=== PATIENT | male | born 1955 | race African-American/Black ===

== ENCOUNTER 2018-07-22 05:13 | Observation (INO) | payer OTHER ==
[2018-07-22] MEDS ORDERED: Nitroglycerin TAB 0.4 MG* 0.4 MG TAB SL ONE ×2 (05:49→08:41)
--- NOTE | 2018-07-22 05:51 | ED ---
HPI Chest Pain - HPI Summary HPI Summary: This patient is a 62 year old M presenting to [facility] accompanied by two corrections officers with a chief complaint of constant central chest pain and SOB since 1 day ago. Patient notes that the pain worsened this morning. EMS administered [employer]. The patient rates the pain 7/10 in severity. Symptoms aggravated by position change. Symptoms alleviated by nothing. Hx HTN and DM. - History of Current Complaint Chief Complaint: EDChestPainROMI Time Seen by Provider: 07/22/18 05:34 Hx Obtained From: Patient Onset/Duration: Started Days Ago - 1 day ago, Atraumatic, Still Present Timing: Constant, Lasting Days Initial Severity: Mild Current Severity: Moderate Pain Intensity: 7 Pain Scale Used: 0-10 Numeric Chest Pain Location: Mid Sternal Aggravating Factor(s): Position Alleviating Factor(s): Nothing Associated Signs and Symptoms: Positive: Chest Pain, Shortness of Breath - Allergy/Home Medications Allergies/Adverse Reactions: Allergies Allergy/AdvReac Type Severity Reaction Status Date / Time No Known Allergies Allergy Verified 07/22/18 05:28 Home Medications: Home Medications Citalopram TAB* [CeleXA TAB*] 10 mg PO DAILY 07/22/18 [History Confirmed ] PMH/Surg Hx/FS Hx/Imm Hx Endocrine/Hematology History: Reports: Hx Diabetes Cardiovascular History: Reports: Hx Hypertension - Surgical History Surgery Procedure, Year, and Place: none reported Infectious Disease History: No Infectious Disease History: Denies: Traveled Outside the [place] in Last 30 Days - Family History Known Family History: Positive: Hypertension - Social History Alcohol Use: None Substance Use Type: Reports: None Smoking Status (MU): Light Every Day Tobacco Smoker Review of Systems Negative: Fever Negative: Epistaxis Positive: Chest Pain Positive: Shortness Of Breath Negative: Rash All Other Systems Reviewed And Are Negative: Yes Physical Exam - Summary Physical Exam Summary: GENERAL: Patient is a well-developed and nourished M who is lying comfortable in the stretcher. Patient is not in any acute respiratory distress. HEAD AND FACE: Normocephalic EYES: PERRLA, EOMI x 2. EARS: Hearing grossly intact. MOUTH: Oropharynx within normal limits. NECK: Supple, trachea is midline, no adenopathy, no JVD, no carotid bruit. CHEST: Symmetric, no tenderness at palpation LUNGS: Clear to auscultation bilaterally. No wheezing or crackles. CVS: Regular rate and rhythm, S1 and S2 present, no murmurs or gallops appreciated. ABDOMEN: Soft, non-tender. Bowel sounds are normal. No abdominal abnormal pulsations. EXTREMITIES: Full ROM in all major joints, no edema, no cyanosis or clubbing. NEURO: Alert and oriented x 3. No acute neurological deficits. Speech is normal and follows commands. SKIN: Dry and warm Triage Information Reviewed: Yes Vital Signs On Initial Exam: Initial Vitals Temp Pulse Resp BP Pulse Ox 98 F 78 19 141/96 96 07/22/18 05:20 07/22/18 05:20 07/22/18 05:20 07/22/18 05:20 07/22/18 05:20 Vital Signs Reviewed: Yes Diagnostics - Vital Signs Vital Signs Temp Pulse Resp BP Pulse Ox 07/22/18 05:20 98 F 78 19 141/96 96 - Laboratory Result Diagrams: 07/22/18 06:22 07/22/18 06:22 Lab Statement: Any lab studies that have been ordered have been reviewed, and results considered in the medical decision making process. - EKG 05:43 Cardiac Rate: NL - at 78 bpm EKG Rhythm: Sinus Rhythm Summary of EKG Findings: NSR at 78 bpm with LAVB. Chest Pain Course/Dx - Course Course Of Treatment: This patient is a 62 year old M presenting to [facility] accompanied by two corrections officers with a chief complaint of constant central chest pain and SOB since 1 day ago. Hx HTN and DM. An EKG reveals NSR at 78 bpm with LAVB. CXR reveals no acute process, pending official report. Patient will admitted to the hospitalist for ACS evaluation - Diagnoses Provider Diagnoses: Chest pain Discharge - Sign-Out/Discharge Documenting (check all that apply): Patient Departure, Sign-Out Patient - signed out to hospitalist Dr. Tan Signing out patient TO: Doron Rasheed All imaging exams completed and their final reports reviewed: Yes - Discharge Plan Condition: Stable Disposition: ADMITTED TO [facility] - Billing Disposition and Condition Condition: STABLE Disposition: Admitted to [facility] - Attestation Statements Document Initiated by Scribe: Yes Documenting Scribe: Babs Smith Provider For Whom Scribe is Documenting (Include Credential): Dhara Whyte MD Scribe Attestation: I, Bbas Smith, scribed for Dhara Whyte MD on 07/23/18 at 0346. Scribe Documentation Reviewed: Yes Provider Attestation: The documentation as recorded by the scribe, Babs Smith accurately reflects the service I personally performed and the decisions made by me, Nilesh Whyte MD
[2018-07-22 06:39] LABS: ABS Basophils 0.1 10^3/ul (0-0.2); ABS Eosinophils 0.1 10^3/ul (0-0.6); ABS Lymphocytes 2.4 10^3/ul (1.0-4.8); ABS Monocytes 0.9 10^3/ul (0-0.8); ABS Neutrophils 5.1 10^3/ul (1.5-7.7); ABS Nucleated RBC 0 10^3/ul; Eosinophil % 0.6 % (0-6); Hematocrit 39 % (42-52); Hemoglobin 13.1 g/dl (14.0-18.0); Lymphocyte % 28.6 % (25-47); Mean Corpuscular HGB Conc 34 g/dl (31-36); Mean Corpuscular Hemoglobin 30 pg (27-31); Mean Corpuscular Volume 88 fL (80-94); Mean Platelet Volume 8.5 fL (7.4-10.4); Nucleated Red Blood Cells % 0.1; Platelet Count 170 10^3/ul (150-450); Red Blood Count 4.38 10^6/ul (4.00-5.40); Red Cell Distribution Width 15 % (10.5-15); White Blood Count 8.5 10^3/ul (3.5-10.8)
[2018-07-22 06:47] LABS: INR 1.06 (0.77-1.02)
[2018-07-22 06:56] LABS: EGFR Non-African American 71.8 (>60)
[2018-07-22] MEDS ORDERED: Nitroglycerin TAB 0.4 MG* 0.4 MG TAB SL PRN (09:36)
[2018-07-22] MEDS: Citalopram TAB* 10 MG PO SCH (10:18)
[2018-07-22] MEDS: Enoxaparin(*) 40 MG/0.4 ML SYR SUBCUT SCH (10:18)
[2018-07-22] MEDS: Nitroglycerin 0.4 MG/HR PATCH* (10 MG) TRANSDERM SCH (10:18)
--- NOTE | 2018-07-22 10:38 | HP ---
HISTORY AND PHYSICAL: DATE OF ADMISSION: 07/22/18 PRIMARY CARE PHYSICIAN: None. HEALTHCARE PROXY: [place]. CODE STATUS: Full. SOURCE: History was obtained from interview with the patient and discussion with ED provider, Dr. Whyte. RELIABILITY: Fair. HISTORY OF PRESENT ILLNESS: This 62-year-old man with past medical history of self- reported type 2 diabetes, hypertension and hyperlipidemia is currently incarcerated, developed sharp chest pain across his chest yesterday morning, worse with deep inspiration that was worse this morning associated with shortness of breath without exertion, for which he presented to the emergency room. He notes that the pain was worse this morning, does have it without ambulation but it is worse with deep inspiration. He originally indicates subcostal region; however, later indicates a more substernal region, radiating to his left chest. He has had no nausea, vomiting, lightheadedness, loss of consciousness or palpitations. He did indicate he has had rhinorrhea recently but did not think much of it. No sore throat. No fevers, chills or night sweats. This is the first time he has experienced such pain. He is in no constipation or diarrhea indicating a GI origin; however, does have a history of GI bleed per his own report. He does note that the pain is worse with exertion but it is unclear if it is secondary to need to take deeper inspirations. When seen by this author, the patient had pain with deep inspiration. PAST MEDICAL HISTORY: Includes: 1. Self-reported type 2 diabetes. 2. Hypertension. 3. Hyperlipidemia. 4. Right jaw surgery status post trauma. MEDICATIONS: No medication list available; however, believes he takes Celexa 10 mg. No other medications. ALLERGIES: No known drug allergies. FAMILY HISTORY: No history of CAD. His mother had type 2 diabetes and hypertension. SOCIAL HISTORY: He smokes 3 to 4 cigarettes per day for 45 years. Reports heavy alcohol use in the past but could not indicate how much. Has smoked marijuana in the past. REVIEW OF SYSTEMS: As per HPI including chest pain with deep inspiration as well as rhinorrhea and shortness of breath. PHYSICAL EXAMINATION GENERAL: Sitting up in bed, interactive, pleasant, in no apparent distress. VITAL SIGNS: When seen by this author 138/96, heart rate of 72, respiratory rate of 16. T-max in the emergency room is 98 degrees Fahrenheit. HEENT: Oropharynx is clear. He has moist mucous membranes. Sclerae are anicteric. LUNGS: Clear to auscultation. He does have tenderness over his entire precordium, although he feels like it is on the "inside." HEART: He has regular rate and rhythm. No murmurs, rubs or gallops. ABDOMEN: Soft, nontender, nondistended with positive bowel sounds. EXTREMITIES: Warm and well perfused without clubbing, cyanosis or edema. He has less than 2 second capillary refill. NEURO: He is alert and oriented x3. His cranial nerves II through XII are intact. LABORATORY DATA: Labs are notable for a D-dimer of less than 200. Troponin I is 0.00. BNP of 10. Lactic acid of 1.1 and glucose 129. Otherwise, hemoglobin of 13.1, no prior for comparison. IMAGING: Chest x-ray reviewed by this author, formal interpretation is still pending. No active cardiopulmonary disease. EKG: No prior for comparison. Notable for normal sinus rhythm, ventricular rate 78, left axis, good R-wave progression. No Q waves, no ST elevations or depressions. ASSESSMENT AND PLAN: This is a 62-year-old man with past medical history of type 2 diabetes, hypertension, hyperlipidemia, self-reported GI bleed, presenting to the hospital with chest pain worse with deep inspiration. 1. Chest pain. The etiology does not seem consistent with unstable angina or non- ST elevated myocardial infarction at this point. Need to wait second troponin for differentiation between unstable angina and non-ST elevated myocardial infarction, although seems more associated with deep inspiration as a pulmonary source. We will admit to the hospital, place on telemetry, start aspirin, nitro p.r.n. Repeat EKG in the morning. Start low dose beta mary. We will not heparinize unless troponin increases or change in symptomatology. Plan on transthoracic echocardiogram tomorrow. If normal and the patient able to ambulate without pain, I believe he could be discharged safely. His MCKAYLA could be considered as 1 for chest pain twice, although seems to be atypical chest pain associated with deep inspiration and not necessarily exertion. Consideration for maintaining the patient until Tuesday for stress test could be considered based on additional testing today. 2. Type 2 diabetes. Check hemoglobin A1c added on to ER labs. 3. Hyperlipidemia, on no medications. Test in the morning tomorrow. 4. DVT prophylaxis is Lovenox. [id number]/[facility] #: [id number] [facility] CENTERJuan Ramon
--- NOTE | 2018-07-22 11:18 | RAD ---
INDICATION: Chest pain and shortness of breath COMPARISON: None. TECHNIQUE: Single AP portable view of the chest was obtained. FINDINGS: Image quality is compromised due to the relative inferiority of a portable chest x-ray. The heart and mediastinum exhibit normal size and contour. The lungs are grossly clear. There is no evidence of a large pleural effusion. Visualized bones are normal for the patient's age. IMPRESSION: No radiographic evidence for acute cardiopulmonary abnormality on this portable chest x-ray. R1NF
[2018-07-22] MEDS: Acetaminophen TAB* 325 MG PO PRN ×3 (12:41→22:40)
[2018-07-22] MEDS: Nicotine PATCH 14 MG/24 HR* PATCH TRANSDERM SCH (16:25)
[2018-07-22] MEDS ORDERED: Al Hydrox/Mg Hydrox/Simet LIQ* 30 ML UDC PO ONE (17:20)
[2018-07-22] MEDS: Nicotine Patch Removal NOTE PATCH OFF SCH (20:47)
[2018-07-23] MEDS: Nitro Patch/OINT Remove PATCH OFF SCH (06:02)
[2018-07-23] MEDS: Aspirin 81 mg CHEW TAB* 81 MG TAB.CHEW PO SCH (07:49)
[2018-07-23] MEDS: Citalopram TAB* 10 MG PO SCH (07:49)
[2018-07-23] MEDS: Nicotine PATCH 14 MG/24 HR* PATCH TRANSDERM SCH (07:51)
[2018-07-23] MEDS: Nitroglycerin 0.4 MG/HR PATCH* (10 MG) TRANSDERM SCH (07:54)
[2018-07-23] MEDS: Enoxaparin(*) 40 MG/0.4 ML SYR SUBCUT SCH (07:56)
--- NOTE | 2018-07-23 08:27 | PN ---
Subjective Date of Service: 07/23/18 Interval History: Pain persists at rest greatly increased with movement of neck body or inspiration Described as a pulsing or throbbing Not associated with food. No SOB, N/V, LH, palps Objective Active Medications: Acetaminophen (Tylenol Tab*) 650 mg PO Q4H PRN PRN Reason: FEVER/PAIN Last Admin: 07/22/18 22:40 Dose: 650 mg Aspirin (Aspirin 81 Mg Chew Tab*) 81 mg PO DAILY [facility] Last Admin: 07/23/18 07:49 Dose: 81 mg Citalopram Hydrobromide (Celexa Tab*) 10 mg PO DAILY [facility] Last Admin: 07/23/18 07:49 Dose: 10 mg Enoxaparin Sodium (Lovenox(*)) 40 mg SUBCUT Q24H [facility] Last Admin: 07/23/18 07:56 Dose: 40 mg Nicotine (Nicotine Patch 14 Mg/24 Hr*) 1 patch TRANSDERM DAILY [facility] Last Admin: 07/23/18 07:51 Dose: 1 patch Nitroglycerin (Nitroglycerin Tab 0.4 Mg*) 0.4 mg SL Q5M PRN PRN Reason: ANGINA Nitroglycerin (Nitroglycerin 10 Mg Patch*) 1 patch TRANSDERM DAILY [facility] Last Admin: 07/23/18 07:54 Dose: 1 patch Pharmacy Profile Note (Nitro Patch/Oint Remove*) 1 note PATCH OFF 0600 [facility] Last Admin: 07/23/18 06:02 Dose: 1 note Pharmacy Profile Note (Nicotine Patch Removal Note*) 1 note PATCH OFF 2100 [facility] Last Admin: 07/22/18 20:47 Dose: 1 note Vital Signs - 8 hr 07/23/18 03:42 Temperature 97.9 F Pulse Rate 81 Respiratory 21 Rate Blood Pressure 133/93 (mmHg) O2 Sat by Pulse 98 Oximetry Oxygen Devices in Use Now: None Appearance: NAD Eyes: No Scleral Icterus, PERRLA Ears/Nose/Mouth/Throat: NL Teeth, Lips, Gums, Clear Oropharnyx Neck: NL Appearance and Movements; NL JVP, Trachea Midline Respiratory: Symmetrical Chest Expansion and Respiratory Effort, Clear to Auscultation Cardiovascular: RRR, - - soft 1-2/6 SHAWN Abdominal: NL Sounds; No Tenderness; No Distention, No Hepatosplenomegaly Lymphatic: No Cervical Adenopathy, No Axillary Adenopathy Extremities: No Edema Skin: No Rash or Ulcers Neurological: Alert and Oriented x 3 Result Diagrams: 07/22/18 06:22 07/22/18 06:22 Assess/Plan/Problems-Billing Assessment: 62 yo M presents with pleuritic chest pain - Patient Problems (1) Chest pain Comment: troponin negative x 3 ddimer negative but will chest CTA chest give pleuritic nature add ESR and CRP to admission labs out of concern for pericarditis - EKG does not support TTE given unknown nature and concern for pericarditis No tenderness to palpation to support constocondritis maintain telemetry trial toradol NS at 75 cc given CTA and toradol (2) Metabolic syndrome Comment: Hba1c 6.2 (3) Dyslipidemia Comment: no need for statin (4) Hypertension Comment: stop nitro patch start ACEi after effect wears off (5) DVT prophylaxis Comment: lovenox
[2018-07-23] MEDS ORDERED: Iodixanol* (CONTRAST) 320 MG/ML 100 ML SDV IV ONE (09:43)
[2018-07-23] MEDS: Ketorolac INJ* 30 MG/ML 1 ML VIAL IV PUSH PRN (10:02)
[2018-07-23] MEDS: NS 0.9% 1000 ML* 1,000 ML IV SCH (10:02)
--- NOTE | 2018-07-23 13:23 | ECHO ---
Patient: MARIA TERESA DOUGLAS [id number] [facility] Rec#: [id number] : 1955 Date: 07/23/2018 Age: 62y Height: 160 cm / 63.0 in Weight: 74.84 kg / 164.9 lbs Sex: M BSA: 1.78 Room#: 431 Admit Date#: 07/22/2018 Type: Inpatient Referring: Doron Rasheed MD Reading: Basim Goodrich MD Quilting Supervisor: Nicci CarpenterAIDE CC: Eastno Khan MD Transthoracic Echocardiogram Indication: Chest pain BP: 133/93 HR: 76 Rhythm: NSR Findings History: DM II, HTN, HLD. Technical Comments: The study quality is good. Completed at 1045. Left Ventricle: The left ventricular chamber size is normal. There is no left ventricular hypertrophy. Global left ventricular wall motion and contractility are within normal limits. Left ventricular systolic function is at the lower limits of normal. The estimated ejection fraction is 50-55%. Mild relative inferior hypokinesis. Abnormal left ventricular diastolic function is observed. There is an E to A reversal in the mitral valve flow pattern suggestive of diastolic dysfunction. Left Atrium: The left atrial chamber size is normal. Right Ventricle: Moderator Band present. The right ventricle is mildly dilated. The right ventricular global systolic function is mildly reduced. Right Atrium: The right atrial cavity size is normal. Aortic Valve: The aortic valve is trileaflet. The aortic valve leaflets are mildly thickened. There is a trace of aortic regurgitation. There is no evidence of aortic stenosis. Mitral Valve: The mitral valve leaflets are mildly thickened. There is a trace of mitral regurgitation. There is no evidence of mitral stenosis. Tricuspid Valve: The tricuspid valve leaflets are normal. There is trace tricuspid regurgitation. Unable to estimate the right ventricular systolic pressure. There is no tricuspid stenosis. Pulmonic Valve: The pulmonic valve appears normal. There is a trace pulmonic regurgitation. There is no pulmonic stenosis. Pericardium: There is no significant pericardial effusion. Aorta: There is mild dilatation of the ascending aorta. There is no dilatation of the aortic arch. The aortic root is normal in size. Pulmonary Artery: The main pulmonary artery appears normal. Venous: The inferior vena cava appears normal in size. There is a greater than 50% respiratory change in the inferior vena cava dimension. Summary: There was not any prior study for comparison. Conclusions Left ventricular systolic function is at the lower limits of normal. The estimated ejection fraction is 50-55%. Mild relative inferior hypokinesis. There is an E to A reversal in the mitral valve flow pattern suggestive of diastolic dysfunction. The right ventricle is mildly dilated. The right ventricular global systolic function is mildly reduced. The aortic valve leaflets are mildly thickened. There is a trace of aortic regurgitation. There is a trace of mitral regurgitation. There is trace tricuspid regurgitation. There is mild dilatation of the ascending aorta. Measurements Name Value Normal Range RVIDd (AP) 2D 2.7 cm (0.9 - 2.6) RVDdMajor (2D) 3.8 cm (2.2 - 4.4) RAd ISD 4CH 4.5 cm (3.4 - 4.9) RA (A4C)W 4.1 cm (2.9 - 4.6) IVSd (2D) 0.9 cm (0.6 - 1) LVPWd (2D) 1 cm (0.6 - 1) LVIDd (2D) 4.7 cm (3.6 - 5.4) LVIDs (2D) 3.48 cm - LV FS (2D) 26 % (25 - 45) Aortic Annulus 2.4 cm (1.4 - 2.6) Ao root diameter (2D) 3.2 cm (2.1 - 3.5) Ascending Ao 3.7 cm (2.1 - 3.4) Aortic arch 2.1 cm (1.8 - 3.4) LA dimension (AP) 2D 3 cm (2.3 - 3.8) LAd ISD 4CH 4.7 cm (2.9 - 5.3) LA ISD 4CH W 3.8 cm (2.5 - 4.5) Name Value Normal Range LA ESV BP (A/L) index 18 ml/m2 - Name Value Normal Range MV E-wave Vmax 0.4 m/sec - MV deceleration time 239 msec - MV A-wave Vmax 0.6 m/sec - MV E:A ratio 0.6 ratio - LV septal e' Vmax 0.05 m/sec - LV lateral e' Vmax 0.08 m/sec - LV E:e' septal ratio 8 ratio - LV E:e' lateral ratio 5 ratio - Name Value Normal Range AV Vmax 1.4 m/sec - AV VTI 21.9 cm - AV peak gradient 8 mmHg - AV mean gradient 4 mmHg - LVOT Vmax 0.7 m/sec - LVOT VTI 11 cm - LVOT peak gradient 2 mmHg - LVOT mean gradient 1 mmHg - SHAWN Vmax 0.7 m/sec - Name Value Normal Range IVC diameter 1.4 cm - Name Value Normal Range PV Vmax 0.9 m/sec - PV peak gradient 3 mmHg -
--- NOTE | 2018-07-23 16:45 | RAD ---
INDICATION: Pleuritic chest pain COMPARISON: None TECHNIQUE: Axial source images were acquired following the administration of 69 mL of Visipaque [address] angiographic technique. Coronal and sagittal reconstructed images were constructed and reviewed. FINDINGS: There there are no filling defects in the pulmonary arteries to indicate acute pulmonary embolic disease. There is a mild degree of diffuse groundglass density. There is pleural-based linear density at the right lower lobe. There are no suspicious pulmonary nodules or large focal consolidation. The heart is normal in size. There is no evidence of pericardial effusion. There is no evidence of aortic aneurysm or dissection. There is no mediastinal, hilar, or axillary lymphadenopathy. The visualized osseous structures appear normal. Limited views of the upper abdomen show no abnormalities. IMPRESSION: 1. No CT of evidence of pulmonary embolism. 2. There is a very mild degree of groundglass opacification which could be seen in the setting of mild pulmonary edema or pneumonitis. There is also a small focus of atelectasis at the dependent-most right lower lobe.
[2018-07-23] MEDS: Acetaminophen TAB* 325 MG PO PRN (19:17)
[2018-07-23] MEDS: Nicotine Patch Removal NOTE PATCH OFF SCH (21:14)
[2018-07-24] MEDS: NS 0.9% 1000 ML* 1,000 ML IV SCH (02:00)
[2018-07-24] MEDS: Nitro Patch/OINT Remove PATCH OFF SCH (05:35)
[2018-07-24] MEDS: Ketorolac INJ* 30 MG/ML 1 ML VIAL IV PUSH PRN ×2 (05:41→12:15)
[2018-07-24] MEDS: Citalopram TAB* 10 MG PO SCH (08:12)
[2018-07-24] MEDS: Aspirin 81 mg CHEW TAB* 81 MG TAB.CHEW PO SCH (08:12)
[2018-07-24] MEDS: Nicotine PATCH 14 MG/24 HR* PATCH TRANSDERM SCH (08:13)
[2018-07-24] MEDS: Enoxaparin(*) 40 MG/0.4 ML SYR SUBCUT SCH (08:17)
[2018-07-24 11:42] VITALS: BP 125/81
[2018-07-24] MEDS: Nitroglycerin 0.4 MG/HR PATCH* (10 MG) TRANSDERM SCH (12:40)
--- NOTE | 2018-07-25 00:06 | DS ---
DISCHARGE SUMMARY: DATE OF ADMISSION: 07/22/18 DATE OF DISCHARGE: 07/24/18 PRIMARY CARE PROVIDER: Ronak Fajardo. PRIMARY DIAGNOSIS: Pericarditis. SECONDARY DIAGNOSES: 1. Depression. 2. Prediabetes. MEDICATIONS ON DISCHARGE: Include: 1. Citalopram 10 mg daily. 2. Omeprazole 20 mg daily for 1 month. 3. Ibuprofen 800 mg 3 times a day standing for 2 weeks, then taper slowly based on response with pain and inflammatory markers. 4. Colchicine 0.6 mg twice daily for 3 months. 5. Acetaminophen 650 mg every 4 hours as needed for pain. PERTINENT IMAGING STUDIES: CTA chest and thorax, impression: No CT evidence of pulmonary embolism. There is very mild degree of ground glass opacification , which could be seen in the setting of mild pulmonary edema or pneumonitis. There is small focus of atelectasis at the dependent most right lower lobe. Transthoracic echocardiogram, impression: Left ventricular systolic function is at the lower limit of normal, estimated LVEF 50% to 55% with mild relative inferior hypokinesis. There is E/A reversal in the mitral valve suggestive of diastolic dysfunction. The right ventricle is mildly dilated. The right ventricle global systolic function is mildly reduced. The aortic valve leaflets are mildly thickened. There is trace aortic regurgitation, trace mild mitral regurgitation and trace TR. PERTINENT LABORATORY DATA: Hemoglobin A1c is 6.2%. Troponin I is 0 on 3 consecutive checks. CRP is 77.8 and his ESR is 57. His white blood cell count is 8.5. His D-dimer is less than 200. HISTORY OF PRESENT ILLNESS AND HOSPITAL COURSE: This is a 62-year-old gentleman with past medical history as outlined in the history of present illness on the day of admission including self-reported history of type 2 diabetes noted to be metabolic syndrome, hemoglobin A1c of 6.2% as well as hypertension not identified during the course of the hospital stay, who presented to the hospital with sudden onset pleuritic chest pain. He had negative troponins. Transthoracic echocardiogram without pericardial effusion, although some findings as indicated above as well as a CTA without any pulmonary embolism. His pain continued, although was relieved with ketorolac. He had increased inflammatory markers. His pain was noted to be improved with leaning forward, although a definitive rub was not appreciated by this author and EKG findings were not classic for pericarditis. I believe pericarditis to be the most likely diagnosis. The patient will be started on Motrin 3 times a day for 2 weeks which should be tapered down based on the patient's improvement/ pain as well as improvement in inflammatory markers, which should be checked in 2 weeks from the time of discharge. Additionally, the patient will be started on colchicine as well as a proton pump inhibitor for gastric protection on standing Motrin. There were no complications during the course of the hospital stay. Attention to a future outpatient cardiac stress test should be made based on transthoracic echocardiogram findings of slightly decreased EF as well as mild relative inferior hypokinesis, although it seems quite unlikely that this event was related to cardiac ischemia based on pleuritic nature of the pain , unrelenting nature of the pain, negative troponins, and improvement with ketorolac. At followup, please; 1. Follow inflammatory markers, CRP and ESR in 2 weeks from the time of discharge. 2. Taper Motrin as indicated above. 3. Consider outpatient stress test with resolution of pericarditis. Reasons to return to the hospital including but not limited to recurrent or worsening symptoms, chest pain, shortness of breath, nausea, vomiting, lightheadedness, loss of consciousness, inability to obtain or tolerate medications discussed with the patient. He acknowledged understanding. TIME SPENT: Greater than 60 minutes were spent on the discharge of this patient , greater than half was spent [id number] with the patient. [id number]/[facility] #: [id number] MELISA
== END 2018-07-24 13:05 ==
LOC: ED 05:13 → EEVIPCON 08:39 → MEDTELE 08:39
PROVIDERS: ADMIT Internal Medicine; ATTEND Internal Medicine
DX: I31.9 Disease of pericardium, unspecified (principal); F32.9 Major depressive disorder, single episode, unspecified; R73.03 Prediabetes; E78.5 Hyperlipidemia, unspecified; I10 Essential (primary) hypertension; E88.81 Metabolic syndrome and other insulin resistance
CPT/HCPCS: 36415; 71045; 71275; 80053; 80061; 83036; 83605; 83735; 83880; 84484; 85025; 85379; 85610; 85652; 85730; 86140; 93005; 93306; 96361; 96372; 96374; 96375; 99284; 99406; A9270-GY; G0378; J1650; J1885; Q9967